=== PATIENT | male | born 1925 | race Caucasian/White ===

== ENCOUNTER 2016-08-25 09:45 | Observation (INO) ==
[~2016-08-25 09:45] MED LIST: ACETAMINOPHEN 325 MG TABLET PO PRN
[2016-08-25] MEDS ORDERED: MORPHINE 2 MG/1 ML SYRINGE IV PRN (09:49)
[2016-08-25] MEDS ORDERED: ZALEPLON 5 MG CAPSULE PO PRN (09:49)
[2016-08-25] MEDS ORDERED: BISACODYL 5 MG TABLET PO PRN (09:49)
[2016-08-25] MEDS ORDERED: ONDANSETRON 4 MG/2 ML VIAL IV PRN (09:49)
[2016-08-25] MEDS ORDERED: DOCUSATE SODIUM 100 MG CAPSULE PO PRN (09:49)
[2016-08-25] MEDS ORDERED: MAGNESIUM SULF RIDER 2 GM in PREMIX 1 EACH IV PRN ×2 (09:52→12:49)
[2016-08-25] MEDS ORDERED: MAGNESIUM SULF RIDER 4 GM in PREMIX 1 EACH IV PRN (09:52)
[2016-08-25] MEDS ORDERED: POTASSIUM CHLORIDE 20 MEQ TABLET PO PRN (09:52)
[2016-08-25 10:57] LABS: Basophils # 0.1 10*3/uL (0.0-0.2); Basophils % 0.3 % (0.0-0.8); Eosinophils % 0.1 % (0.00-10.9); Hematocrit 44.3 VOL% (42.0-52.0); Hemoglobin 15.6 GM/DL (14.0-18.0); Immature Granulocytes % 3.6 %; Immature Granulocytes Absolute 0.52 #; Lymphocytes # 1.2 10*3/uL (1.4-4.0); Lymphocytes % 8.2 % (21.2-54.2); Mean Corpuscular HGB Conc 35.2 GM/DL (32-36); Mean Corpuscular Hemoglobin 31 PG (27-34); Mean Corpuscular Volume 87.4 FL (87-102); Mean Platelet Volume 9.7 FL (9.6-12.0); Monocytes # 1.3 10*3/uL (0.11-0.8); Monocytes % 9.2 % (1.7-12.7); Neutrophils # 11.3 10*3/uL (1.4-7.4); Neutrophils % 78.6 % (38.7-73.9); Platelet Count 184 T/CUMM (130-400); Red Blood Count 5.07 MC/CUMM (3.8-5.5); Red Cell Distribution Width 12.6 % (9.3-17.3); White Blood Count 14.3 T/CUMM (4-12)
[2016-08-25] MEDS ORDERED: ASPIRIN EC 325 MG TABLET PO SCH (11:00)
--- NOTE | 2016-08-25 11:04 | Cardiology History & Physical ---
Assessment and Plan - Time spent with patient Time spent with patient: Greater than 30 minutes (1) Hypertension Status: Acute Current Visit: Yes (2) Dyslipidemia Status: Acute Current Visit: Yes (3) Advanced age Status: Acute Current Visit: Yes (4) Chest pain Status: Acute Current Visit: No (5) Mitral insufficiency Status: Acute Current Visit: No History of Present Illness Chief complaint: Chest pain History of present illness: SPORTS REPORTER: DR. ALBARRAN PCP: HUNTER TAYLOR Mr. Sharif, 89WM, with risk factors significant for: advanced age and hypertension. History of atrial fibrillation, moderate to severe MR. Patient was directly admitted from [facility] Madisyn Taylor's office today for complaints of chest pain concerning for angina. Since August 15, 2016, patient has been experiencing intermittent chest discomfort located in the center of his chest without radiation. It is described as "heaviness" and is associated with weakness and shortness of breath. This lasts until he takes a nitroglycerin. He can identify no aggravating factors as it is now occurring at rest as well as with exertion. This is occurring almost every day at some point. Rates the discomfort as a 7 on a scale of 1-10. He is currently chest pain-free. His last bout of chest pain was Sunday evening. April 28, 2016 echocardiogram reveals: EF 65%, grade 2 diastolic dysfunction, moderate to severe MR with a very eccentric mitral regurgitation with more than 1 very small jet of regurgitation present. PAP 33 mmHg. Patient denies a history of IVP dye or shellfish allergy. No vomiting of blood or passing blood in his stool. Labs are pending at this time. Patient does acknowledge having dry hacking cough and hoarseness for the past week. He is taking losartan. At this point I will hold family will reevaluate med needs at discharge. He has been given aspirin 325 mg orally, Lovenox 80 mg subcu, beta- deon, lipid-lowering agent, oral nitrate. Holding ARB at this time. I have discussed with Dr. Pimentel and he would like to keep the patient n.p.o. for possible cardiac catheterization this afternoon. ASSESSMENT/PLAN: 1. CHEST PAIN CONCERNING FOR ANGINA - NPO at this time until Dr. Albarran can assess for possible LHC 2. HYPERTENSION - usually well-controlled. Hold ARB and assess cough, sore throat off ARB 3. DYSLIPIDEMIA - Continue Atorvastin. FLP in am 4. MODERATE TO SEVERE MR - contniue with afterload reduction as able 5. ADVANCED AGE - continue current plan of care. 6. ATRIAL FIBRILLATION - rate controlled. Takes ASA for stroke prevention Home Medications Medication Instructions Recorded Confirmed Type Aspirin EC Tab 325 mg PO QOTHER DAY 09/17/15 09/17/15 History Ergocalciferol (Vitamin D2) 2,000 unit PO DAILY 09/17/15 09/17/15 History [Vitamin D2] Gabapentin 300 mg PO TID 09/17/15 09/17/15 History Levothyroxine Tab [Synthroid Tab] 25 mcg PO DAILY 09/17/15 09/17/15 History Meloxicam [Mobic] 7.5 mg PO BID 09/17/15 09/17/15 History Terazosin HCl 10 mg PO DAILY 09/17/15 09/17/15 History Atorvastatin [Lipitor] 10 mg PO BEDTIME #30 tablet 09/19/15 Rx Carvedilol [Coreg] 6.25 mg PO BID #60 tablet 09/19/15 Rx Furosemide Tab [Lasix Tab] 40 mg PO DAILY #30 tablet 09/19/15 Rx Isosorbide Mononitrate [Imdur] 30 mg PO DAILY #30 tablet 09/19/15 Rx Losartan [Cozaar] 25 mg PO DAILY #30 tablet 09/19/15 Rx Nitroglycerin Sl Tab [Nitrostat] 0.4 mg SL Q5M PRN #100 tablet 09/19/15 Rx Pantoprazole Tab [Protonix Tab] 40 mg PO DAILY #30 tablet 09/19/15 Rx Allergies Allergy/AdvReac Type Severity Reaction Status Date / Time Sulfa (Sulfonamide Allergy Unknown/Unable Verified 09/17/15 17:51 Antibiotics) to obtain 12 point system: reviewed and no additional remarkable complaints except as stated Review of systems: REVIEW OF SYSTEMS: - Constitutional Constitutional: Present: Fatigue. Absent: syncope, anorexia, night sweats - EENT Eyes: Absent: blurry vision, loss of vision, diplopia Ears: Absent: decreased hearing, ear pain, ear discharge - Cardiovascular Cardiovascular: Present: chest pain with exertion and at rest. Shortness of breath with chest pain. Denies palpitations. Absent: chest pain with deep breath, claudication - Respiratory Respiratory: Present: SMITH, cough, sore throat. Absent: wheezing, hemoptysis, change in phlegm color - Gastrointestinal Gastrointestinal: Denies: constipation. Absent: abdominal pain, hematemesis, hematochezia, melena, change in bowel habits, nausea - Genitourinary Genitourinary: Absent: difficulty urinating, dysuria, urinary hesitancy, flank pain - Musculoskeletal Musculoskeletal: Present: back pain Absent: joint swelling, muscle cramps, muscle weakness - Neurological Neurological: Present: normal gait without frequent falls. Absent: dizziness, hemiparesis - Psychiatric Psychiatric: Absent: anxiety, depression, difficulty concentrating - Endocrine Endocrine: Present: fatigue. Absent: cold intolerance, heat intolerance, polyuria, polyphagia, polydipsia - Hematologic/Lymphatic Hematologic/Lymphatic: Present: easy bruising. Absent: easy bleeding -Integumentary Integumentary: Absent: lesions, rashes, skin breakdown Medical,Surgical,& Family Hx - Medical History Cardio: History of: Cardiac Dysrhythmia (AFIB), CHF, Hypertension No history of: CAD, RI Endocrine: History of: Thyroid Disorder Other: History of: Cancer (COLON) - Surgical History Thoracic Surgeries: Patient denies;: Organ Transplant, Lobectomy Abdominal Surgeries: Surgical HX of: Abdominal Surgery Reproductive Surgeries: Patient denies;: Genitourinary Surgery - Family History Family History: Reports;: Family Heart Disease (father had heart disease prior to his .) - Social History Smoking Status: Never smoker Have you smoked in the last 12 months: No Frequency of Alcohol Use: None Type of Drug Use: None Marital Status: Lives With:: Spouse Functional capacity: independent ambulation Cardiology Physical Exam - Constitutional Exam: General: [Appears well with no apparent distress.] [Pleasant and cooperative. ] [Appears comfortable.] HEENT: [PERRL, normocephalic, atraumatic. Mucous membranes moist. No jaundice noted. Conjunctiva moist and clear, sclerae anicteric] Neck: No JVD/HJR, no thyromegaly or lymphadenopathy noted. No carotid bruit appreciated Cardiac: [Irregularly irregular rhythm, controlled rate.] [III/ holosystolic murmur heard best at fifth intercostal space left. Lungs: [Clear to auscultation without accessory muscle use to assist the respiratory pattern.] Oxygen in use via nasal cannula Abdomen: Soft, bowel sounds normoactive. Nontender and nondistended. No abdominal bruit or thrill noted. No masses noted. Musculoskeletal: No fluid collection. Decreased range of motion is noted. Extremities: No clubbing, cyanosis noted. [ No edema noted.] Upper extremity pulses 2+. Lower extremity pulses 2+. Capillary refill less than 3 seconds. Skin: No unusual lesions or rashes. No skin breakdown appreciated. Neuro: Awake, alert and oriented 3. Moves all extremities well without hemiparesis or paralysis. No essential tremor is appreciated. Result/EKG - Labs CBC & BMP: 08/25/16 10:46 Lab Results: I have reviewed the past 24 hour labs - Diagnostic Findings Procedure: Chest x-ray: pending - EKG EKG results: interpreted by me EKG shows: sinus rhythm
[2016-08-25 11:17] LABS: Band Neutrophils 2 % (0-10); Lymphocytes 9 % (20-55); Segmented Neutrophils 79 % (50-85); Total Cells Counted 100
[2016-08-25 11:18] LABS: Hypochromasia 1+; Microcytosis Slight; Platelet Estimate Adequate
[2016-08-25] MEDS ORDERED: ENOXAPARIN 80 MG/0.8 ML SYRINGE SUBCUT ONE (11:30)
[2016-08-25 11:35] LABS: Alanine Aminotransferase 42 U/L (16-61); Albumin 3.4 G/DL (3.4-5.0); Alkaline Phosphatase 63 U/L (45-117); Aspartate Amino Transferase 11 U/L (0-37); Blood Urea Nitrogen 25 MG/DL (7-18); Calcium 9.1 MG/DL (8.5-10.1); Glucose 119 MG/DL (74-106); Osmolality,Calculated 279.7 MOS/KG (273-304); Potassium 3.7 MMOL/L (3.5-5.1); Sodium 138 MMOL/L (136-145); Total Protein 6.2 G/DL (6.4-8.3); Troponin I Only < 0.015 NG/ML (0.00-0.045)
[2016-08-25 11:40] LABS: Free T4 (Free Thyroxine) 1.11 NG/DL (0.76-1.46); Thyroid Stimulating Hormone 4.36 uIU/ml (0.358-3.74)
--- NOTE | 2016-08-25 11:43 | XRay Report ---
Portable chest. Indication: Shortness of breath. Comparison: September 18, 2015. The heart is mildly enlarged with left ventricular pertinent or feet. Calcified granulomas are noted within the lung parenchyma. The pulmonary vasculature is normal. The lung dove are clear. No pneumothorax or pleural effusion. Small calcification or foreign body in the right axilla. Impression: Stable cardiomegaly. No acute abnormality PROCEDURE INTERPRETED AT [facility] ([facility] DEPARTMENT OF RADIOLOGY Final Report Signed by: Dr. Yanni Marquez
--- NOTE | 2016-08-25 11:46 | EKG Report ---
Stationary ECG Study [facility] Test Date: 08/25/2016 11:45:26 AM Pat Name: CHEN GAVIRIA Department: Room: 291 Gender: M Patent Counsel: : 1925 Requested by: Yary Molina Order Number: [id number] Reading MD: MONIKA SILVER Intervals [place] Rate: 59 P: 30 [place]: 196 QRS: 49 QRSD: 141 T: 10 QT: 417 QTc: 416 Interpretive Statements SINUS RHYTHM WITH OCCASIONAL SUPRAVENTRICULAR PREMATURE COMPLEXES RIGHT BUNDLE BRANCH BLOCK Electronically Signed On 08-25-16 17:23:24 CDT by MONIKA SILVER [email or web address]
[2016-08-25] MEDS ORDERED: ATORVASTATIN 10 MG TABLET PO SCH ×2 (12:00→21:00)
[2016-08-25] MEDS ORDERED: POTASSIUM CHLORIDE RIDER 10 MEQ in PREMIX 1 EACH IV PRN (12:49)
[2016-08-25] MEDS ORDERED: DIAZEPAM 5 MG TABLET PO ONE (12:49)
[2016-08-25] MEDS ORDERED: diphenhydrAMINE CAP 25 MG CAPSULE PO ONE (12:49)
--- NOTE | 2016-08-25 12:57 | History and Physical Update ---
Sedation H&P Update - History and Physical H&P was reviewed, the patient examined and there: are no changes in the patients condition since last H&P was completed. - Dictation Physical: refer to H&P completed by admitting physician - Physical Exam Mental Status: alert and oriented Heart: regular rate and rhythm (3/6 MUMUR of MR and laterally displaced PMI) Lung: clear to auscultation Abdomen: within normal limits Vitals: within normal limits - Sedation Plan for Sedation: moderate Patient Consent: Procedure disscussed with patient and patinet has consented., Risks and benefits were discussed with patient,including infection,, bleeding, injury to surrounding structures, seizure, temporary nerve, Patient understands and accepts potential risks/benefits and agrees to, proceed. ASA Class: III Airway Assessment: Class II: Soft palate, uvula, fauces visible
[2016-08-25] MEDS: SODIUM CHLORIDE 0.45% 1,000 ML IV SCH ×2 (13:24→21:37)
[2016-08-25] MEDS ORDERED: GABAPENTIN 300 MG CAPSULE PO SCH (15:00)
[2016-08-25] MEDS ORDERED: LIDOCAINE 1% 20 ML VIAL ONE (15:51)
[2016-08-25] MEDS ORDERED: HEPARIN/NACL 0.9% 2 UNITS/ML 1,000 ML IV ONE (15:51)
[2016-08-25] MEDS ORDERED: MIDAZOLAM 2 MG/2 ML VIAL ONE (15:56)
[2016-08-25] MEDS ORDERED: fentaNYL 100 MCG/2 ML VIAL ONE (15:56)
[2016-08-25] MEDS: CARVEDILOL 6.25 MG TABLET PO SCH ×2 (16:40→21:37)
[2016-08-25] MEDS: TERAZOSIN 5 MG CAPSULE PO SCH (16:41)
[2016-08-25] MEDS: ISOSORBIDE MONONITRATE 30 MG TABLET PO SCH (16:41)
[2016-08-25] MEDS: LEVOTHYROXINE 25 MCG TABLET PO SCH (16:43)
--- NOTE | 2016-08-25 17:00 | Cardiac Catheterization ---
Date of Procedure:: 08/25/16 Pre-op Diagnosis: Unstable angina and mitral regurgitation Post-op diagnosis: other (Unstable angina secondary to very small ostial diagonal stenosis see below) Procedure: Procedures: 1. Left heart catheterization resting hemodynamics 2. Right heart catheterization with hemodynamics including thermodilution and Jose method cardiac output 3. Selective left and right coronary angiography 4. Left ventriculography by hand injection 5. Right femoral iliac angiography 6. Closure right femoral arteriotomy with Mynx closure device After consent was taken from the patient. Taken to the catheterization lab for left heart catheterization via the femoral artery. Time out was taken and recorded. 1% lidocaine was infiltrated in the skin and subcutaneous tissue overlying the right femoral artery. Seldinger technique was utilized to obtain access the right femoral vein and a 7 [place] sheath was placed over the 035 wire after small skin incision was made. At this time modified Seldinger technique and an 18-gauge Offerum needle was used for access to the right femoral artery. An 0.35 J-wire was advanced through the needle into the central aorta under fluoroscopy. A small skin was made and a 6 [place]ian sheath was placed over the wire. The sheath was aspirated and flushed. A balloon tip flow-directed Lebeau-Michelle catheter was advanced through the 7 [place]ian femoral venous sheath directly to the wedge position. Wedge pressure measurements were made. The catheter was then pulled back in the pulmonary artery simultaneous FA and PA sats were obtained. Thermodilution was utilized to obtain cardiac outputs as well as Jose calculations. The catheter was then pulled back into the RV and RA positions. Pressure measurements were performed. A JL46 was advanced over the wires in the left main coronary artery was selectively engaged. Multiple orthogonal views of the left system were obtained. The catheter was then exchanged over the wire. The sheath was aspirated and flushed. A JR4 catheter was advanced over the wire into the central aorta. The right coronary was selectively engaged and orthogonal views of the right coronary artery were obtained. The catheter was then exchanged over the wire, the sheath was aspirated and flushed. At this time an angled pigtail catheter was advanced across the aortic valve into the ventricle. Pressure measurements were obtained and a cine ventriculogram was performed in the MARTINO projection with 10 mL/s by hand injection. Pullback measurements were performed. The riveting machine operator tape control reviewed the films. The sheath was aspirated and flushed and a right femoral and iliac angiography was performed. The access site was amenable for closure and the area was reprepped with ChloraPrep and draped with sterile towels. The Mynx closure device was used in standard technique. There was no hematoma and distal pulses were good. Total diagnostic fluoroscopy time 3.6 minutes with total fluoroscopy dose 215 mGy. Total contrast exposure is 55 cc of Visapaque FINDINGS: RA: 7 mmHg RV: 39/6 with a end-diastolic pressure of 10 Pulmonary artery pressure 22/4 with mean of 13 Pulmonary capillary wedge pressure 11 mmHg Cardiac output by Jose method 3.4 L/min. Average cardiac output with 4 thermal dilutions was 3. 4 L/min. Pulmonary vascular resistance was 174.9 dyne systemic vascular resistance 2516 dyne LV: 149/10 LVEDP: 12 Ao:147/66 EF: 60% with no regional wall motion abnormality. There appears to be moderate mitral regurgitation at most. Contrast clears from the right atrium after one beat. The right atrium appears to be enlarged. LM: Angiographically normal LAD: Angiographically normal with a ostial 90% stenosis of the second diagonal that is less than a millimeter in size and vessel. There are 4 very small diagonals. LCx: The left circumflex although a small vessel is dominant vessel. This vessel is free of any significant disease RCA: The right coronary artery is a nondominant vessel supplying only a right PDA is free of any significant disease RFA/BRITTANY: Right femoral iliac arteries are normal however there is bifurcation stick not amenable for closure with Angio-Seal. Minx was used without apparent complication Assessment: 1. 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 Preserved ejection fraction with moderate mitral regurgitation 3. Normal resting hemodynamics including right sided pressures, pulmonary capillary wedge pressure, right atrial pressure and end-diastolic pressure PLAN: 1. Escalate therapy for small vessel disease 2. Look for source of leukocytosis awaiting urinalysis empiric antibiotic therapy while this is pending Implants: Mynx closure device right femoral arteriotomy Anesthesia: moderate conscious sedation Surgeon / Physician: Symone Davies Director Of Email Marketing: none Estimated blood loss: none Specimens: none sent Condition: stable Disposition: floor - Medications / Follow-up
[2016-08-25 20:00] LABS: Troponin I Only 0.022 NG/ML (0.00-0.045)
[2016-08-25 20:45] LABS: Apearance,Urine CLEAR (Clear); Bilirubin,Urine Negative (Negative); Blood, Urine Small mg/dL (Negative); Glucose,Urine (UA) Negative (Negative); Ketones,Urine Negative (Negative); Nitrite,Urine Negative (Negative); Protein,Urine Negative; RBC,Urine 2 /HPF (0-4); Urine Color Yellow (Yellow); Urine Specific Gravity 1.036 (1.001-1.035); Urine Urobilinogen < 2.0 EU/DL (0.2-1.0); WBC,Urine 1 /HPF (0-6)
[2016-08-25] MEDS ORDERED: CIPROFLOXACIN 500 MG TABLET PO SCH (21:00)
[2016-08-25] MEDS: RANOLAZINE 500 MG TABLET PO SCH (21:36)
[2016-08-26 02:46] LABS: Basophils # 0.1 10*3/uL (0.0-0.2); Basophils % 0.5 % (0.0-0.8); Eosinophils % 0.2 % (0.00-10.9); Hematocrit 46.4 VOL% (42.0-52.0); Hemoglobin 15.9 GM/DL (14.0-18.0); Immature Granulocytes % 4.1 %; Immature Granulocytes Absolute 0.64 #; Lymphocytes # 1.5 10*3/uL (1.4-4.0); Lymphocytes % 9.9 % (21.2-54.2); Mean Corpuscular HGB Conc 34.3 GM/DL (32-36); Mean Corpuscular Hemoglobin 30 PG (27-34); Mean Corpuscular Volume 88.7 FL (87-102); Mean Platelet Volume 10.5 FL (9.6-12.0); Monocytes # 1.1 10*3/uL (0.11-0.8); Monocytes % 7.2 % (1.7-12.7); Neutrophils # 12.1 10*3/uL (1.4-7.4); Neutrophils % 78.1 % (38.7-73.9); Platelet Count 187 T/CUMM (130-400); Red Blood Count 5.23 MC/CUMM (3.8-5.5); Red Cell Distribution Width 12.4 % (9.3-17.3); White Blood Count 15.5 T/CUMM (4-12)
[2016-08-26 03:13] LABS: Albumin 3.5 G/DL (3.4-5.0); Bilirubin,Total 1.3 MG/DL (0.2-1.0); Calcium 9.3 MG/DL (8.5-10.1); Osmolality,Calculated 280.5 MOS/KG (273-304); Potassium 4.4 MMOL/L (3.5-5.1); Risk Ratio 3.87; Total Protein 6.5 G/DL (6.4-8.3); VLDL CHOLESTEROL 41.6 MG/DL
[2016-08-26 03:21] LABS: Troponin I Only 0.019 NG/ML (0.00-0.045)
[2016-08-26 04:25] LABS: Lymphocytes 7 % (20-55); Myelocytes 2 %; Segmented Neutrophils 84 % (50-85)
[2016-08-26 04:29] LABS: Platelet Estimate Normal
[2016-08-26 04:30] LABS: Total Cells Counted 100
[2016-08-26 04:31] LABS: Atypical Lymphocytes Few
--- NOTE | 2016-08-26 08:04 | EKG Report ---
Stationary ECG Study [facility] Test Date: 08/26/2016 8:06:32 AM Pat Name: CHEN GAVIRIA Department: Room: 291 Gender: M Clinical Allergist: MEHREEN : 1925 Requested by: Yary Molina Order Number: [id number] Derik MD: BERRY DE LOS SANTOS Intervals [place] Rate: 55 P: 31 [place]: 176 QRS: 21 QRSD: 93 T: -10 QT: 411 QTc: 400 Interpretive Statements SINUS RHYTHM POSSIBLE INFERIOR MYOCARDIAL INFARCTION, PROBABLY OLD Electronically Signed On 08-27-16 06:16:14 CDT by BERRY DE LOS SANTOS [email or web address]
[2016-08-26 08:26] VITALS: BP 174/77
[2016-08-26] MEDS ORDERED: PANTOPRAZOLE 40 MG TABLET PO SCH (09:00)
[2016-08-26] MEDS ORDERED: CHOLECALCIFEROL 1,000 UNIT TABLET PO SCH (09:00)
[2016-08-26] MEDS ORDERED: FUROSEMIDE 40 MG TABLET PO SCH (09:00)
[2016-08-26] MEDS: TERAZOSIN 5 MG CAPSULE PO SCH (10:10)
[2016-08-26] MEDS: CARVEDILOL 6.25 MG TABLET PO SCH (10:11)
[2016-08-26] MEDS: LEVOTHYROXINE 25 MCG TABLET PO SCH (10:12)
[2016-08-26] MEDS: ISOSORBIDE MONONITRATE 30 MG TABLET PO SCH (10:12)
[2016-08-26] MEDS: RANOLAZINE 500 MG TABLET PO SCH (10:12)
--- NOTE | 2016-08-26 11:43 | Discharge Summary ---
Hospital Course - Hospital Course Hospital Course: 89-year-old man whose underwent cardiac catheterization yesterday with findings of was felt to be small vessel disease now treated with Ranexa in addition to his usual medications. He has developed diarrhea on Cipro which she was given because of a abnormal urinalysis. We are going to switch him to ampicillin and have him call Dr. Pimentel on Sunday about whether he is continuing with diarrhea or problems related to his antibiotics. He stable post catheterization and is adamant about going home today and so we will proceed with getting home. I reviewed with him the activities medications and precautions and we will discharge him today. Discharge Plan - Discharge Data Disposition: Disch To Home/Self Care Condition at Discharge: Stable Discharge Diet: heart healthy Activity: other (As outlined in the post procedure instruction sheet) Hygiene: keep area(s) dry - Discharge Medications New Ampicillin Cap 500 mg PO BID #14 capsule Continue Aspirin EC Tab 325 mg PO DAILY Levothyroxine Tab [Synthroid Tab] 25 mcg PO AC BREAKFAST Terazosin HCl 10 mg PO DAILY Carvedilol [Coreg] 6.25 mg PO BID #60 tablet Furosemide Tab [Lasix Tab] 40 mg PO DAILY #30 tablet Isosorbide Mononitrate [Imdur] 30 mg PO DAILY #30 tablet Losartan [Cozaar] 25 mg PO DAILY #30 tablet Nitroglycerin Sl Tab [Nitrostat] 0.4 mg SL Q5M PRN #100 tablet PRN Reason: Chest Pain Losartan [Cozaar] 25 mg PO BEDTIME Omeprazole 20 mg DAILY - Follow Up or Referral Follow Up: Symone Davies DO [Physician] - 2 Weeks (Leg check.) - Forms/Instructions Exam - Constitutional Vitals: Period Temp Pulse Resp BP Sys/Arechiga Pulse Ox Last 24 Hr 98.5 F-98.9 F 57-75 16-18 119-174/64-82 95-96 Discharge Results Procedures and tests throughout hospitalization: Pending Orders 08/25/16 12:56 CL heart Routine 08/27/16 04:00 Comp Blood Count Auto Diff IN AM Comprehensive Metabolic Panel IN AM 08/28/16 04:00 Comp Blood Count Auto Diff IN AM Comprehensive Metabolic Panel IN AM Labs on day of discharge: Labs from last 24 hours 08/26/16 08/26/16 08/26/16 01:30 01:30 01:30 WBC 15.5 H RBC 5.23 Hgb 15.9 Hct 46.4 MCV 88.7 MCH 30 MCHC 34.3 RDW 12.4 Plt Count 187 MPV 10.5 Neut % (Auto) 78.1 H Lymph % (Auto) 9.9 L [place] % (Auto) 7.2 Eos % (Auto) 0.2 Baso % (Auto) 0.5 Neut # (Auto) 12.1 H Lymph # (Auto) 1.5 [place] # (Auto) 1.1 H Eos # (Auto) 0.0 Baso # (Auto) 0.1 Total Counted 100 Immature Gran % 4.1 Nucleated RBC % 0.0 Immature Gran # 0.64 Segmented Neutrophils 84 Lymphocytes 7 L Monocytes 7 Myelocytes 2 Nucleated RBCs # 0.00 Atypical Lymphocytes Few Platelet Estimate Normal INR PT Patient/Control Mix Sodium 139 Potassium 4.4 Chloride 103 Carbon Dioxide 26 Anion Gap 14.4 BUN 20 H Creatinine 0.90 GFR Calculation 84 BUN/Creatinine Ratio 22.00 H Glucose 120 H Calculated Osmolality 280.5 Calcium 9.3 Total Bilirubin 1.30 H AST 15 ALT 43 Alkaline Phosphatase 62 Total Creatine Kinase 42 CK-MB (CK-2) < 1.0 Troponin I 0.019 Total Protein 6.5 Albumin 3.5 Globulin 3.0 Albumin/Globulin Ratio 1.1 Triglycerides 208 H Cholesterol 151 LDL Cholesterol 88.0 VLDL Cholesterol 41.6 HDL Cholesterol 39 L Heart Disease Risk Ratio 3.87 Free T4 TSH 3rd Generation Urine Color Urine Appearance Urine pH Ur Specific [place] Urine Protein Urine Glucose (UA) Urine Ketones Urine Blood Urine Nitrate Urine Bilirubin Urine Urobilinogen Urine Leukocytes Urine RBC Urine WBC Urine Yeast (Budding) Ur Culture Indicated? 08/25/16 08/25/16 08/25/16 Unknown 19:25 11:30 WBC RBC Hgb Hct MCV MCH MCHC RDW Plt Count MPV Neut % (Auto) Lymph % (Auto) [place] % (Auto) Eos % (Auto) Baso % (Auto) Neut # (Auto) Lymph # (Auto) [place] # (Auto) Eos # (Auto) Baso # (Auto) Total Counted Immature Gran % Nucleated RBC % Immature Gran # Segmented Neutrophils Lymphocytes Monocytes Myelocytes Nucleated RBCs # Atypical Lymphocytes Platelet Estimate INR 1.0 PT Patient/Control Mix 11.0 Sodium Potassium Chloride Carbon Dioxide Anion Gap BUN Creatinine GFR Calculation BUN/Creatinine Ratio Glucose Calculated Osmolality Calcium Total Bilirubin AST ALT Alkaline Phosphatase Total Creatine Kinase 35 L CK-MB (CK-2) < 1.0 Troponin I 0.022 Total Protein Albumin Globulin Albumin/Globulin Ratio Triglycerides Cholesterol LDL Cholesterol VLDL Cholesterol HDL Cholesterol Heart Disease Risk Ratio Free T4 TSH 3rd Generation Urine Color Yellow Urine Appearance Clear Urine pH 7.0 Ur Specific [place] 1.036 H Urine Protein Negative Urine Glucose (UA) Negative Urine Ketones Negative Urine Blood Small Urine Nitrate Negative Urine Bilirubin Negative Urine Urobilinogen < 2.0 H Urine Leukocytes Negative Urine RBC 2 Urine WBC 1 Urine Yeast (Budding) Few Ur Culture Indicated? Not indicated 08/25/16 10:46 WBC RBC Hgb Hct MCV MCH MCHC RDW Plt Count MPV Neut % (Auto) Lymph % (Auto) [place] % (Auto) Eos % (Auto) Baso % (Auto) Neut # (Auto) Lymph # (Auto) [place] # (Auto) Eos # (Auto) Baso # (Auto) Total Counted Immature Gran % Nucleated RBC % Immature Gran # Segmented Neutrophils Lymphocytes Monocytes Myelocytes Nucleated RBCs # Atypical Lymphocytes Platelet Estimate INR PT Patient/Control Mix Sodium Potassium Chloride Carbon Dioxide Anion Gap BUN Creatinine GFR Calculation BUN/Creatinine Ratio Glucose Calculated Osmolality Calcium Total Bilirubin AST ALT Alkaline Phosphatase Total Creatine Kinase CK-MB (CK-2) Troponin I Total Protein Albumin Globulin Albumin/Globulin Ratio Triglycerides Cholesterol LDL Cholesterol VLDL Cholesterol HDL Cholesterol Heart Disease Risk Ratio Free T4 1.11 TSH 3rd Generation 4.360 H Urine Color Urine Appearance Urine pH Ur Specific [place] Urine Protein Urine Glucose (UA) Urine Ketones Urine Blood Urine Nitrate Urine Bilirubin Urine Urobilinogen Urine Leukocytes Urine RBC Urine WBC Urine Yeast (Budding) Ur Culture Indicated? DS: Provider Date of admission: 08/25/16 10:11 Primary care physician: HUNTER Miranda Attending physician on admission: Symone Davies DO Discharging clinician: Robert Hill MD
[2016-08-26] MEDS ORDERED: AMPICILLIN 500 MG CAPSULE PO SCH (21:00)
== END 2016-08-26 13:23 | disposition home or self-care (01) ==
LOC: N.TELEN
PROVIDERS: ADMIT Internal Medicine Cardiovascular Disease; ATTEND Internal Medicine Cardiovascular Disease